=== PATIENT | male | born 1955 ===

== ENCOUNTER → 2019-05-01 | Day surgery (SDC) | payer OTHER ==
[~2019-05-01] MED LIST: IV RINGERS,LACTATED 1000ML 1,000 ML IV ONE; IV RINGERS,LACTATED 1000ML 1,000 ML IV SCH; LOSA25TA54 PO; MIDAZOLAM HCL/PF 5 MG/5 ML VIAL. IV ONE; MIDAZOLAM HCL/PF 5 MG/5 ML VIAL. ONE; fentaNYL PF VIAL 100 MCG/2 ML VIAL IV ONE; fentaNYL PF VIAL 100 MCG/2 ML VIAL ONE
[2019-05-01 18:12] VITALS: BP 105/79
--- NOTE | 2019-05-03 15:07 | PATHOLOGY ---
[facility] Accession Number: [id number] . 01 Material submitted: . colon - ASCENDING COLON POLYPS X3. Modifiers: ascending . 01 Clinical history: . Screening . 02 Diagnosis: Colon biopsies, ascending colon polyps x3: - Tubular adenomas. - Segments of colonic mucosa showing no significant pathologic abnormalities. . ([facility] 05/03/2019) [facility]03/2019 0951 Local . 02 Comment: Sections of the ascending colon biopsy reveal three segments of tubular adenoma and approximately four segments of colonic mucosa showing no significant pathologic abnormalities. There is no high-grade dysplasia or evidence of malignancy. ([facility]PM:[facility] 05/03/2019) . 02 Electronically signed: . Xiang Rosas MD, Pathologist NPI- [id number] . 01 Gross description: . The specimen is received in formalin, labeled "Elmer Le, ascending colon polyps x3". Received are seven segments of pale pike soft tissue ranging in size from 0.2 to 0.5 cm in maximum dimensions. The specimen is submitted entirely in cassette A1. ([facility]; 05/02/2019) QA/QA 05/02/2019 1606 Local . 02 Pathologist provided ICD-10: D12.2 . 02 CPT . 131104 Specimen Comment: A courtesy copy of this report has been sent to [phone] Specimen Comment: [id number] Specimen Comment: Report sent to / DR OBREGON Performed at: 01 [facility] [address], [place], [place] [id number] MD Ankit Whitley MD Phone: [phone] Performed at: 02 [facility] [address] [place], [place] [id number] MD Xiang Rosas MD Phone: [phone]
== END ==
LOC: ENDOS 16:55
PROVIDERS: ATTEND Internal Medicine Gastroenterology
DX: Z12.11 Encounter for screening for malignant neoplasm of colon (principal); D12.2 Benign neoplasm of ascending colon; K64.0 First degree hemorrhoids; I10 Essential (primary) hypertension; F15.90 Other stimulant use, unspecified, uncomplicated; F17.210 Nicotine dependence, cigarettes, uncomplicated; F32.9 Major depressive disorder, single episode, unspecified; Z72.89 Other problems related to lifestyle
CPT/HCPCS: 45380; 88305; J2250; J3010; 99152